=== PATIENT | female | born 1945 | race Caucasian/White ===

== ENCOUNTER 2019-05-10 03:12 | Inpatient (IN) | payer MEDICARE, OTHER, SELFPAY ==
[~2019-05-10] VITALS: Ht 167.6 cm; Wt 79.0 kg
[2019-05-17 13:57] VITALS: BP 128/71
== END 2019-05-17 16:45 | DRG 463 ==
LOC: ED 05:16 → EDIP 05:20 → 4NOR 06:00
PROVIDERS: ADMIT Family Medicine; ATTEND Family Medicine
PROC: 0JB70ZZ Excision of Back Subcutaneous Tissue and Fascia, Open Approach (ICD-10-PCS; 2019-05-13)
PROC: 02HV33Z Insertion of Infusion Device into Superior Vena Cava, Percutaneous Approach (ICD-10-PCS; principal; 2019-05-17)
PROC: B5181ZA Fluoroscopy of Superior Vena Cava using Low Osmolar Contrast, Guidance (ICD-10-PCS; 2019-05-17)
PROC: B548ZZA Ultrasonography of Superior Vena Cava, Guidance (ICD-10-PCS; 2019-05-17)
DX: M46.28 Osteomyelitis of vertebra, sacral and sacrococcygeal region (principal); L89.154 Pressure ulcer of sacral region, stage 4; Z96.653 Presence of artificial knee joint, bilateral; G89.29 Other chronic pain; G30.9 Alzheimer's disease, unspecified; F02.80 Dementia in other diseases classified elsewhere, unspecified severity, without behavioral disturbance, psychotic disturbance, mood disturbance, and anxiety; E83.51 Hypocalcemia; F41.9 Anxiety disorder, unspecified; F32.9 Major depressive disorder, single episode, unspecified; E86.0 Dehydration; E78.5 Hyperlipidemia, unspecified; Z66 Do not resuscitate; E03.9 Hypothyroidism, unspecified; G83.9 Paralytic syndrome, unspecified; I10 Essential (primary) hypertension; Z88.1 Allergy status to other antibiotic agents; Z91.013 Allergy to seafood; Z91.018 Allergy to other foods; Z98.1 Arthrodesis status; Z91.81 History of falling; Z87.891 Personal history of nicotine dependence; Z82.0 Family history of epilepsy and other diseases of the nervous system; Z80.0 Family history of malignant neoplasm of digestive organs; Z79.899 Other long term (current) drug therapy; Z79.891 Long term (current) use of opiate analgesic; Z90.710 Acquired absence of both cervix and uterus; Z81.1 Family history of alcohol abuse and dependence; B95.62 Methicillin resistant Staphylococcus aureus infection as the cause of diseases classified elsewhere
CPT/HCPCS: 36415; 36573; 70450; 72156; 72157; 72197; 74177; 80053; 80307; 81001; 83605; 83735; 84100; 84145; 84439; 84443; 84484; 85025; 85610; 85651; 86140; 87040; 87070; 87075; 87077; 87102; 87147; 87186; 87205; 93005; 99156; 99157; 99285; A9585; G0378; J0295; J0878; J1170; J2250; J2405; J2704; J3010; J3370; C1751; J0330; J1200; J2060; J2270; J2310; J2765; J7030; J7050